=== PATIENT | male | born 1985 | race Caucasian/White ===

== ENCOUNTER 2018-04-04 17:50 | Emergency (ER) | payer BC, OTHER ==
[~2018-04-04] VITALS: Ht 188 cm; Wt 67.3 kg
[2018-04-04 17:58] VITALS: BP 123/62; Ht 188 cm; Wt 67.3 kg
--- NOTE | 2018-04-04 21:56 | ERD ---
ER Documentation Chief Complaint Chief Complaint generalized myalgia, N/V, and dizziness x 1 day HPI 33-year-old male, previously healthy, presents the emergency department, complaining of 1 day with sudden onset of fever, body aches, nausea, vomiting and general malaise. + Sick contact for influenza. The patient was vaccinated against flu 2 months ago. He denies shortness of breath, no cough, no rashes. ROS All systems reviewed and are negative except as per history of present illness. Medications Home Meds Active Scripts Acetaminophen* (Tylenol*) 325 Mg Tablet, 2 TAB PO Q8 PRN for PAIN AND OR ELEVATED TEMP, #20 TAB Prov:LOPEZ HERNANDEZ MD 04/05/18 Ibuprofen* (Motrin*) 600 Mg Tab, 600 MG PO Q8, #15 TAB Prov:LOPEZ HERNANDEZ MD 04/05/18 Oseltamivir Phosphate* (Tamiflu*) 75 Mg Capsule, 75 MG PO BID for 5 Days, CAP Prov:LOPEZ HERNANDEZ MD 04/05/18 Allergies Allergies: Coded Allergies: No Known Allergy (Unverified , 04/04/18) PMhx/Soc Medical and Surgical Hx: pt denies Medical Hx History of Surgery: Yes (Tonsillectomy; Appendectomy) Hx Alcohol Use: No Hx Substance Use: No Hx Tobacco Use: No Smoking Status: Never smoker Physical Exam Vitals Vital Signs Date Temp Pulse Resp B/P (MAP) Pulse Ox O2 O2 Flow FiO2 Time Delivery Rate 04/05/18 98.6 68 20 96 Room Air 00:40 04/04/18 100.3 110 20 123/62 97 17:58 (82) Physical Exam Const: Mild distress due to pain Head: Atraumatic Eyes: Normal Conjunctiva ENT: erythematous oropharynx, normal External Ears, Nose and Mouth. Neck: Full range of motion. No meningismus. Resp: Clear to auscultation bilaterally Cardio: Regular rate and rhythm, no murmurs Abd: Soft, non tender, non distended. Normal bowel sounds Skin: No petechiae or rashes Back: No midline or flank tenderness Ext: No cyanosis, or edema Neur: Awake and alert Psych: Normal Mood and Affect Result Diagram: 04/04/18221004/04/182210 Results 24 hrs Laboratory Tests Test 04/04/18 22:11 White Blood Count 6.6 10^3/ul Red Blood Count 4.70 10^6/ul Hemoglobin 15.1 g/dl Hematocrit 44.4 % Mean Corpuscular Volume 94.5 fl Mean Corpuscular Hemoglobin 32.1 pg Mean Corpuscular Hemoglobin Concent 34.0 g/dl Red Cell Distribution Width 12.3 % Platelet Count 236 10^3/UL Mean Platelet Volume 10.8 fl Immature Granulocytes % 0.300 % Neutrophils % 79.2 % Lymphocytes % 8.4 % Monocytes % 11.9 % Eosinophils % 0.0 % Basophils % 0.2 % Nucleated Red Blood Cells % 0.0 /100WBC Immature Granulocytes # 0.020 10^3/ul Neutrophils # 5.2 10^3/ul Lymphocytes # 0.6 10^3/ul Monocytes # 0.8 10^3/ul Eosinophils # 0.0 10^3/ul Basophils # 0.0 10^3/ul Nucleated Red Blood Cells # 0.0 10^3/ul Sodium Level 142 mmol/L Potassium Level 4.5 mmol/L Chloride Level 97 mmol/L Carbon Dioxide Level 26 mmol/L Anion Gap 19 Blood Urea Nitrogen 11 mg/dl Creatinine 0.86 mg/dl Est Glomerular Filtrat Rate mL/min > 60 mL/min Glucose Level 105 mg/dl Calcium Level 10.0 mg/dl Total Bilirubin 0.1 mg/dl Direct Bilirubin 0.00 mg/dl Indirect Bilirubin 0.1 mg/dl Aspartate Amino Transf (AST/SGOT) 33 IU/L Alanine Aminotransferase (ALT/SGPT) 18 IU/L Alkaline Phosphatase 121 IU/L Total Protein 9.7 g/dl Albumin 5.4 g/dl Globulin 4.30 g/dl Albumin/Globulin Ratio 1.25 Lipase 29 U/L Current Medications Medications Dose Sig/Meliton Start Time Status Last (Trade) Ordered Route PRN Stop Time Admin Dose Reason Admin Sodium 1,000 ml @ Q2H STAT 04/04/18 DC 04/04/18 Chloride 500 mls/hr IV 22:00 22:18 04/04/18 23:59 650 mg ONCE STAT 04/04/18 DC 04/04/18 Acetaminophen PO 22:00 22:16 (Tylenol 04/04/18 22:08 Tab) Ondansetron 4 mg ONCE STAT 04/04/18 DC 04/04/18 HCl (Zofran ODT 22:00 22:18 Odt) 04/04/18 22:08 Oseltamivir 75 mg ONCE STAT 04/04/18 DC 04/04/18 Phosphate PO 22:00 22:16 (Tamiflu) 04/04/18 22:08 Ketorolac 30 mg ONCE STAT 04/04/18 DC 04/04/18 Tromethamine IV 22:00 22:18 (Toradol) 04/04/18 22:08 RUN DATE: 04/04/18 [facility] PAGE 1 RUN TIME: [id number] [place] [address] Dyllan Lynn M.D. Control Officer Bebeto Thompson M.D. Co-Control Officer LIZ#: [id number] Name: DELFINA TEJEDABREY Age/Sex: 33/M Attend Dr: LOPEZ PADILLA Acct: [id number] MR# : [id number] : 1985 Location: [facility] Admit: 04/04/18 Specimen: [id number] Status: Complete Judith: 04/04/18 Rcvd: 04/04/18 Source: JOSE ANTONIO Camilo Descrip: Procedure Result - Microbiology INFLUENZA A & B BY EIA Final INFLU A&B BY EIA INFLUENZA A POSITIVE (Ref Range Neg) INFLUENZA B NEGATIVE (Ref Range Neg) Phoned to @1766 04/04/18 BY SENA Procedures/MDM Vital signs stable. Differential diagnosis include but not limited to: Respiratory infection bacterial/viral/fungal. Asthma/COPD, pneumonitis, allergies, GERD. Less likely foreign body aspiration, cardiac related, aspiration pneumonia, malignancy. Physical examination and clinical presentation consistent most likely with influenza. During the ED course the patient remained stable, fever resolved with medications given in the ER, no new complaints. Clinical impression discussed with patient who agrees with management. The rj ent is stable to be treated outpatient and will be discharged home with a Rx for antiviral medication and ibuprofen, antibiotics not indicated at this time. Some side effects of prescribed medications (headache, rash, nausea, vomiting, diarrhea, drowsiness, habituation, bleeding, hypertension, interactions with other medications) were reviewed. The patient was instructed to follow up with the primary care provider in the next 48h. If symptoms persist, worsen or new symptoms develop, then patient should return to the ED immediately. Disclaimer: Inadvertent spelling and grammatical errors are likely due to EHR/dictation software use and do not reflect on the overall quality of patient care. Also, please note that the electronic time recorded on this note does not necessarily reflect the actual time of the patient encounter. Departure Diagnosis: Primary Impression: Influenza A Condition: Stable Additional Instructions: Thank you very much for allowing us to participate in your care. Your health and safety is our top priority at [facility]. Call your primary care doctor TOMORROW for an appointment during the next 2-4 days and bring all the information and medications prescribed. Have prescriptions filled and follow precisely the directions on the label. If the symptoms get worse and your provider is unavailable, return to the Emergency Department immediately. LOPEZ HERNANDEZ MD Apr 04, 2018 21:56
[2018-04-04] MEDS ORDERED: SOD CHLORIDE 0.9% 1,000 ML IV STA (22:00)
[2018-04-04] MEDS ORDERED: ACETAMINOPHEN 325 MG TAB PO STA (22:00)
[2018-04-04] MEDS ORDERED: ONDANSETRON (ODT) 4 MG TAB ODT STA (22:00)
[2018-04-04] MEDS ORDERED: OSELTAMIVIR 75 MG CAP PO STA (22:00)
[2018-04-04] MEDS ORDERED: KETOROLAC 30 MG INJ IV STA (22:00)
[2018-04-05] MEDS ORDERED: OSEL75CA23 PO (00:08)
[2018-04-05] MEDS ORDERED: ACET325T33 PO (00:08)
[2018-04-05] MEDS ORDERED: IBUP-1542 PO (00:08)
[2018-04-05 00:40] VITALS: PULSE 68; RESP 20
== END 2018-04-05 00:20 | disposition home or self-care (01) ==
LOC: FTE 17:50
DX: J10.1 Influenza due to other identified influenza virus with other respiratory manifestations (principal)
CPT/HCPCS: 80053; 83690; 85025; 87400; 96374; J1885; J7030; Z7502; Z7610